=== PATIENT | male | born 1955 | race Caucasian/White ===

== ENCOUNTER 2018-02-22 13:34 | Emergency (ER) | payer BC ==
[~2018-02-22] VITALS: Ht 162.6 cm; Wt 75.6 kg
[2018-02-22 14:08] LABS: HEMATOCRIT 42.7 % (38.0-50.0); MCHC 35.1 G/DL (30.0-36.0); MCV 88.2 FL (86-99); PLATELET COUNT 220 K/uL (156-360); RBC DIS.WIDTH-CV 12.6 % (11.8-14.6); RBC DIS.WIDTH-SD 40.7 % (39-53); RED BLOOD COUNT 4.84 M/uL (4.00-5.50); WHITE BLOOD COUNT 6.2 K/uL (4.1-10.2)
[2018-02-22 14:22] LABS: ALBUMIN 4.1 g/dL (3.2-4.8)
[2018-02-22 14:23] LABS: CHLORIDE 106 mEq/L (99-109); POTASSIUM 3.4 mEq/L (3.7-5.4); SODIUM 138 mEq/L (136-147)
[2018-02-22 14:25] LABS: GLUCOSE 116 mg/dL (70-99); TOTAL PROTEIN 6.4 g/dL (6.4-8.3)
[2018-02-22 14:27] LABS: TOTAL BILIRUBIN 0.8 mg/dL (0.0-1.0)
[2018-02-22 14:28] LABS: ALKALINE PHOSPHATASE 87 IU/L (3-129)
[2018-02-22 14:29] LABS: CREATININE 0.9 mg/dL (0.6-1.3); GFR ESTIMATE (CALCULATED) > 59 mL/min/ (58.99-99999)
[2018-02-22 14:30] LABS: AST (GOT) 21 IU/L (2-34); UREA NITROGEN (BUN) 18 mg/dL (9-23)
[2018-02-22 14:32] LABS: ALT (GPT) 20 IU/L (3-49); LIPASE 14 U/L (1.0-51.0)
[2018-02-22 14:32] LABS: APPEARANCE CLEAR ((CLEAR)); BILIRUBIN NEGATIVE; BLOOD NEGATIVE; COLOR STRAW ((YELLOW)); GLUCOSE (STRIP) NEGATIVE; KETONES NEGATIVE; LEUKOCYTES NEGATIVE; NITRITE NEGATIVE; PROTEIN (STRIP) NEGATIVE; SPECIFIC GRAVITY 1.008 (1.000-1.030); UCUL ADDED? NO; UROBILINOGEN 0.2 MG/DL (0.2-1.0)
[2018-02-22] MEDS ORDERED: NORCO 5/3251 TABLET PO (16:24)
[2018-02-22 16:38] VITALS: BP 124/93
== END 2018-02-22 16:38 | disposition home or self-care (01) ==
LOC: EME 13:34
DX: K40.90 Unilateral inguinal hernia, without obstruction or gangrene, not specified as recurrent (principal); E78.5 Hyperlipidemia, unspecified; K21.9 Gastro-esophageal reflux disease without esophagitis
CPT/HCPCS: 76870; 76882; 80053; 81003; 83690; 85027